=== PATIENT | male | born 1950 | race Caucasian/White ===

== ENCOUNTER 2022-12-24 13:07 | Outpatient (REF) | payer MEDICARE, SELFPAY ==
--- NOTE | ~2022-12-24 | US_ITS ---
EXAMINATION: Noninvasive assessment of the arteries of both lower extremities to include a single level PVR exam and ANKLE BRACHIAL INDICES (ABIs). CLINICAL INFORMATION: Peripheral vascular disease COMPARISON: None available. TECHNIQUE: The ankle/brachial indices of the distal posterior tibial and the dorsalis pedis arteries were obtained of the lower extremity arterial system bilaterally; along with pressures and pulse volume recordings at the ankle level. The study was performed at rest. FINDINGS: 1. ANKLE-BRACHIAL INDICES: RIGHT: 1.5 LEFT: 1.5 2. ANKLE PVR WAVEFORMS: RIGHT: Abnormal LEFT: Abnormal US/US ELEN complete IMPRESSION: High ABIs up to 1.5 bilaterally suggestive of vascular calcifications. There is likely some degree of peripheral vascular disease demonstrated by decreased amplitude of pulse volume recordings bilaterally.
== END 2022-12-24 13:08 | disposition home or self-care (01) ==
LOC: HO.US 13:07
PROVIDERS: PCP Physician Assistant Medical; Visit Provider Radiology Vascular & Interventional Radiology
DX: I73.9 Peripheral vascular disease, unspecified (principal); Z86.31 Personal history of diabetic foot ulcer
CPT/HCPCS: 93923